=== PATIENT | female | born 1950 | race African-American/Black ===

== ENCOUNTER 2017-12-24 09:45 | Outpatient (CLI) | payer MEDICARE | END 2017-12-24 09:46 | disposition home or self-care (01) | LOC: BICMAMMO 09:45 | PROVIDERS: ATTEND Family Medicine | DX: Z12.31 Encounter for screening mammogram for malignant neoplasm of breast (principal); Z80.3 Family history of malignant neoplasm of breast | CPT/HCPCS: 77063; 77067 ==

== ENCOUNTER 2018-12-26 13:30 | Outpatient (CLI) | payer MEDICARE ==
--- NOTE | 2018-12-26 13:53 | MMO ---
Bilateral MAMMO Bilat Screen [facility]. CLINICAL HISTORY: Patient is 68 years old and is seen for screening. The patient has no personal history of cancer. The patient has a history of right Cyst Aspiration in 2000 - BENIGN FINDINGS. VIEWS: The views performed were: bilateral craniocaudal with tomosynthesis and bilateral mediolateral oblique with tomosynthesis. FILMS COMPARED: The present examination has been compared to prior imaging studies performed at [facility] on 12/21/2014, 12/23/2015, 12/23/2016 and 12/24/2017. MAMMOGRAM FINDINGS: The breasts are heterogeneously dense, which could obscure a lesion on mammography. There is an oval mass seen in the lower-outer region of the left breast. In the right breast, there are no suspicious masses, calcifications or areas of architectural distortion. IMPRESSION: MASS IN THE LEFT BREAST REQUIRES ADDITIONAL EVALUATION. SPOT COMPRESSION IS RECOMMENDED. AN ULTRASOUND EXAM IS RECOMMENDED IF NEEDED. THE RESULTS OF THIS EXAM WERE SENT TO THE PATIENT. ACR BI-RADS Category 0 - Incomplete: Need additional imaging evaluation. [facility] will notify the patient of the need for additional imaging services. MAMMOGRAPHY NOTE: 1. A negative mammogram report should not delay a biopsy if a dominant of clinically suspicious mass is present. 2. Approximately 10% to 15% of breast cancers are not detected by mammography. 3. Adenosis and dense breasts may obscure an underlying neoplasm. Reported by: Iglesia MORA Electonically Signed: [id number]
== END 2018-12-26 13:31 | disposition home or self-care (01) ==
LOC: BICMAMMO 13:30
PROVIDERS: ATTEND Family Medicine
DX: Z12.31 Encounter for screening mammogram for malignant neoplasm of breast (principal); N63.20 Unspecified lump in the left breast, unspecified quadrant
CPT/HCPCS: 77063; 77067

== ENCOUNTER 2019-07-11 09:19 | Outpatient (CLI) | payer MEDICARE ==
--- NOTE | 2019-07-11 10:04 | ULT ---
LIMITED LEFT BREAST ULTRASOUND: DATE: 07/11/2019. PROVIDED CLINICAL HISTORY: Six-month followup. FINDINGS: Limited sonographic interrogation of the left breast was performed in the region of mammographic and prior sonographic concern. There is a stable 9 mm circumscribed oval hypoechoic mass measuring about 9 mm. No shadowing or other concerning findings. IMPRESSION: BIRADS category 3 - probably benign findings. Six-month followup recommended. POS: OFF
--- NOTE | 2019-07-13 13:29 | MMO ---
Left Breast MAMMO Unilat Diag [facility]. CLINICAL HISTORY: Patient is 68 years old and is seen for diagnostic exam. The patient has no family history of breast cancer. The patient has no personal history of cancer. The patient has a history of right Cyst Aspiration in 1999 - BENIGN FINDINGS. VIEWS: The views performed were: left craniocaudal with tomosynthesis; left mediolateral oblique with tomosynthesis; and left mediolateral with tomosynthesis. FILMS COMPARED: The present examination has been compared to prior imaging studies performed at [facility] on 12/26/2018, 01/05/2019 and 07/11/2019. This study has been interpreted with the assistance of computer-aided detection. MAMMOGRAM FINDINGS: The breast is heterogeneously dense, which could obscure a lesion on mammography. There is a stable oval mass with circumscribed margins seen in the left breast at 5 o'clock. Ultrasound findings are also stable. IMPRESSION: STABLE MASS IN THE LEFT BREAST IS PROBABLY BENIGN. FOLLOW-UP IN 6 MONTHS IS RECOMMENDED. THE RESULTS OF THIS EXAM WERE SENT TO THE PATIENT. ACR BI-RADS Category 3 - Probably benign finding - short interval follow-up suggested. [facility] will notify the patient of the need for additional imaging services. MAMMOGRAPHY NOTE: 1. A negative mammogram report should not delay a biopsy if a dominant of clinically suspicious mass is present. 2. Approximately 10% to 15% of breast cancers are not detected by mammography. 3. Adenosis and dense breasts may obscure an underlying neoplasm. Reported by: JULES HEADLEY MD Electonically Signed: [id number]
== END 2019-07-11 09:20 | disposition home or self-care (01) ==
LOC: BICMAMMO 09:19
PROVIDERS: ATTEND Family Medicine
DX: R92.8 Other abnormal and inconclusive findings on diagnostic imaging of breast (principal); N63.23 Unspecified lump in the left breast, lower outer quadrant
CPT/HCPCS: 76642; 77065; G0279

== ENCOUNTER 2020-01-25 09:16 | Outpatient (CLI) | payer MEDICARE ==
--- NOTE | 2020-01-25 10:12 | MMO ---
Bilateral MAMMO Bilat Diag [facility]. CLINICAL HISTORY: Patient is 69 years old and is seen for diagnostic exam. The patient has no family history of breast cancer. The patient has no personal history of cancer. The patient has a history of right Cyst Aspiration in 1999 - BENIGN FINDINGS. VIEWS: The views performed were: bilateral craniocaudal with tomosynthesis; bilateral mediolateral oblique with tomosynthesis; and bilateral mediolateral with tomosynthesis. FILMS COMPARED: The present examination has been compared to prior imaging studies performed at [facility] on 01/05/2019, 07/11/2019 and 01/25/2020. This study has been interpreted with the assistance of computer-aided detection. MAMMOGRAM FINDINGS: The breasts are heterogeneously dense, which could obscure a lesion on mammography. Finding 1: There are stable benign appearing calcifications seen in both breasts. Finding 2: There is a stable oval mass measuring 6 x 8 mm with circumscribed margins seen in the lower-outer region of the left breast. Finding 3: There are stable benign appearing densities seen in both breasts. IMPRESSION: FINDING 1: STABLE CALCIFICATIONS IN BOTH BREASTS ARE BENIGN. FINDING 2: STABLE MASS IN THE LEFT BREAST IS PROBABLY BENIGN. FOLLOW-UP IN 6 MONTHS IS RECOMMENDED. FINDING 3: STABLE BENIGN APPEARING DENSITIES IN BOTH BREASTS ARE BENIGN. THE RESULTS OF THIS EXAM WERE SENT TO THE PATIENT. ACR BI-RADS Category 3 - Probably benign finding - short interval follow-up suggested. [facility] will notify the patient of the need for additional imaging services. MAMMOGRAPHY NOTE: 1. A negative mammogram report should not delay a biopsy if a dominant of clinically suspicious mass is present. 2. Approximately 10% to 15% of breast cancers are not detected by mammography. 3. Adenosis and dense breasts may obscure an underlying neoplasm. Reported by: AMADO SKINNER MD Electonically Signed: [id number]
--- NOTE | 2020-01-25 10:28 | ULT ---
LEFT BREAST ULTRASOUND: Date: 01/25/2020 HISTORY: Follow-up left breast mass. FINDINGS: The left breast was evaluated with attention to the 5 o'clock position, 4.0 cm from the nipple. There appears to be a stable, 0.3 x 0.4 x 1.0 cm, hypoechoic solid mass. This is unchanged dating back to 01/05/2019. IMPRESSION: BI-RADS Category 3 - Probably benign findings. A 6 month follow-up left breast diagnostic mammogram a nd ultrasound is recommended for further assessment. The facility will notify patient of need for additional imaging services. POS: OFF
== END 2020-01-25 09:17 | disposition home or self-care (01) ==
LOC: BICMAMMO 09:16
PROVIDERS: ATTEND Family Medicine
DX: N63.23 Unspecified lump in the left breast, lower outer quadrant (principal); R92.8 Other abnormal and inconclusive findings on diagnostic imaging of breast; R92.1 Mammographic calcification found on diagnostic imaging of breast
CPT/HCPCS: 76642; 77066; G0279

== ENCOUNTER 2020-07-24 09:21 | Outpatient (CLI) | payer MEDICARE ==
--- NOTE | 2020-07-24 10:09 | MMO ---
Left Breast MAMMO Unilat Diag [facility]. CLINICAL HISTORY: Patient is 69 years old and is seen for diagnostic exam. The patient has no family history of breast cancer. The patient has no personal history of cancer. The patient has a history of right Cyst Aspiration in 1999 - BENIGN FINDINGS. VIEWS: The views performed were: left craniocaudal with tomosynthesis; left mediolateral oblique with tomosynthesis; and left mediolateral with tomosynthesis. FILMS COMPARED: The present examination has been compared to prior imaging studies performed at [facility] on 07/11/2019, 01/25/2020 and 07/24/2020. This study has been interpreted with the assistance of computer-aided detection. MAMMOGRAM FINDINGS: The breast is heterogeneously dense, which could obscure a lesion on mammography. The small mass at lower outer 5:00 left breast is stable. There are benign appearing calcifications in the left breast. IMPRESSION: FINDING IN THE LEFT BREAST IS PROBABLY BENIGN. FOLLOW-UP IN 6 MONTHS IS RECOMMENDED. THE RESULTS OF THIS EXAM WERE SENT TO THE PATIENT. ACR BI-RADS Category 3 - Probably benign finding - short interval follow-up suggested. [facility] will notify the patient of the need for additional imaging services. MAMMOGRAPHY NOTE: 1. A negative mammogram report should not delay a biopsy if a dominant of clinically suspicious mass is present. 2. Approximately 10% to 15% of breast cancers are not detected by mammography. 3. Adenosis and dense breasts may obscure an underlying neoplasm. Reported by: SABRINA MULLINS MD Electonically Signed: [id number]
--- NOTE | 2020-07-24 10:18 | ULT ---
LIMITED LEFT BREAST ULTRASOUND: Date: 07/24/2020 HISTORY: Follow-up exam. FINDINGS: Correlation is made with mammogram from today. Comparison made with left breast ultrasound of 020. Sonographic evaluation of the 5 o'clock position of the left breast, 4.0 cm from the nipple, shows a stable, solid-appearing, hyperechoic mass measuring 9.0 x 3.0 x 4.0 mm. This is stable dating back to 01/05/2019. IMPRESSION: BI-RADS Category 3 - Probably benign findings. Six month follow-up left breast diagnostic mammogram a nd ultrasound is recommended. The facility will notify patient of need for additional imaging services. POS: OFF
== END 2020-07-24 09:22 | disposition home or self-care (01) ==
LOC: BICMAMMO 09:21
PROVIDERS: ATTEND Family Medicine
DX: R92.8 Other abnormal and inconclusive findings on diagnostic imaging of breast (principal)
CPT/HCPCS: 76642; 77065; G0279

== ENCOUNTER 2021-01-27 10:02 | Outpatient (CLI) | payer MEDICARE | END 2021-01-27 10:03 | disposition home or self-care (01) | LOC: BICMAMMO 10:02 | PROVIDERS: ATTEND Family Medicine | DX: R92.8 Other abnormal and inconclusive findings on diagnostic imaging of breast (principal) | CPT/HCPCS: 76642; 77066; G0279 ==

== ENCOUNTER 2022-07-06 09:05 | Outpatient (CLI) | payer MEDICARE | END 2022-07-06 09:06 | disposition home or self-care (01) | LOC: BICMAMMO 09:05 | PROVIDERS: ATTEND Family Medicine | DX: Z12.31 Encounter for screening mammogram for malignant neoplasm of breast (principal); Z13.820 Encounter for screening for osteoporosis; M85.851 Other specified disorders of bone density and structure, right thigh; Z78.0 Asymptomatic menopausal state | CPT/HCPCS: 77063; 77067; 77080 ==